=== PATIENT | male | born 1990 | race Two or more races ===

== ENCOUNTER 2018-10-27 01:12 | Emergency (ER) | payer MEDICAID ==
[~2018-10-27] VITALS: Ht 177.8 cm; Wt 155.0 kg
[2018-10-27] MEDS ORDERED: CLINDAMYCIN HCL 150MG CAPSULE PO STA (03:41)
[2018-10-27] MEDS ORDERED: HYDROCODONE/ACETAMINOPHEN 10/325MG TABLET PO ONE (03:45)
[2018-10-27 04:33] VITALS: BP 130/75
== END 2018-10-27 04:34 | disposition home or self-care (01) ==
LOC: ER 01:12
DX: L02.415 Cutaneous abscess of right lower limb (principal); L03.115 Cellulitis of right lower limb; R03.0 Elevated blood-pressure reading, without diagnosis of hypertension
CPT/HCPCS: 99283